=== PATIENT | male | born 1975 | race Two or more races ===

== ENCOUNTER 2019-06-28 01:46 | Emergency (ER) | payer SELFPAY ==
[~2019-06-28] VITALS: Ht 172.7 cm; Wt 83.9 kg
[2019-06-28 02:17] LABS: BILIRUBIN,URINE NEGATIVE (NEG); CLARITY,URINE CLEAR; COLOR,URINE YELLOW; NITRITE,URINE NEGATIVE (NEG); PROTEIN,URINE NEGATIVE (NEG-TRACE)
[2019-06-28] MEDS ORDERED: KETOROLAC 30 MG/ML VIAL. IVP ONE (02:30)
[2019-06-28] MEDS ORDERED: IV NORMAL SALINE 1000ML BAG 1,000 ML IV ONE (02:30)
[2019-06-28 02:35] LABS: BASO # 0.1 x10^3/uL (0.0-0.2); BASO % 1 % (0-3); EOS # 0.3 x10^3/uL (0.0-0.7); EOS % 4 % (0-3); HEMATOCRIT 44.6 % (39.0-53.0); HEMOGLOBIN 15.5 g/dL (13.0-17.5); LYMPH # 4.2 x10^3/uL (1.0-4.8); LYMPH % 50 % (24-48); MEAN CORPUSCULAR HEMOGLOBIN 30 pg (25-35); MEAN CORPUSCULAR HGB CONC 35 g/dL (31-37); MEAN CORPUSCULAR VOLUME 87 fL (79-100); MONO # 0.6 x10^3/uL (0.0-1.1); MONO % 7 % (0-9); NEUT # 3.3 x10^3/uL (1.8-7.7); NEUT % 39 % (31-73); PLATELET COUNT 403 x10^3/uL (140-400); RED BLOOD COUNT 5.16 x10^6/uL (4.30-5.70); RED CELL DISTRIBUTION WIDTH 12.8 % (11.5-14.5); WHITE BLOOD COUNT 8.4 x10^3/uL (4.0-11.0)
[2019-06-28 02:46] LABS: CALCIUM 8.9 mg/dL (8.5-10.1); CREATININE 1.1 mg/dL (0.7-1.3); GFR 72.7; POTASSIUM 3.1 mmol/L (3.5-5.1)
[2019-06-28 02:46] LABS: BACTERIA,URINE FEW /HPF (0-FEW); SQUAMOUS EPITHELIAL CELL,UR FEW /LPF
[2019-06-28 02:47] LABS: AMORPHOUS SEDIMENT,UR PRESENT /HPF
[2019-06-28 02:52] LABS: ALBUMIN 3.8 g/dL (3.4-5.0); ALBUMIN/GLOBULIN RATIO 0.9 (1.0-1.7); TOTAL BILIRUBIN 0.5 mg/dL (0.2-1.0); TOTAL PROTEIN 7.9 g/dL (6.4-8.2)
[2019-06-28 02:57] VITALS: BP 140/83
[2019-06-28] MEDS ORDERED: CONTRAST GIVEN. MC PRN (04:30)
[2019-06-28] MEDS ORDERED: POTASSIUM CHLORIDE 20 MEQ TABLET.ER. PO ONE (04:30)
[2019-06-28] MEDS ORDERED: IOHEXOL 300 MG/ML 100ML VIAL. IV ONE (04:30)
--- NOTE | 2019-06-28 04:47 | RAD ---
CT SCAN OF THE ABDOMEN AND PELVIS WITH IV CONTRAST. History: Left upper quadrant pain Comparison:None. Procedure: Contiguous axial images of the abdomen and pelvis were performed after the administration of 75 cc of Isovue 370 IV contrast. Oral contrast: No. Findings: Liver: Unremarkable Spleen: Unremarkable Pancreas: Unremarkable Adrenal Glands: Unremarkable Kidneys: There is mild perinephric edema on the left. There is no mass or lymphadenopathy. There is no free air. There is no free fluid. The urinary bladder appears normal. The appendix is normal. Impression: Mild left perinephric edema could be secondary to pyelonephritis. PQRS Compliance Statement: One or more of the following individualized dose reduction techniques were utilized for this examination: 1. Automated exposure control 2. Adjustment of the mA and/or kV according to patient size 3. Use of iterative reconstruction technique Electronically signed by: Xavier Calvert III, MD (06/28/2019 4:44 AM) [facility]
[2019-06-28] MEDS ORDERED: CEPH-264 PO (05:10)
[2019-06-28] MEDS ORDERED: DICL50TA4 PO (05:10)
--- NOTE | 2019-06-28 05:11 | PHYS DOC ---
Past Medical History Past Medical History: No Pertinent History Past Surgical History: Other Additional Past Surgical Histo: LEFT CLAVICLE SURGERY Alcohol Use: None Drug Use: None Adult General Chief Complaint Chief Complaint: FLANK PAIN HPI HPI Patient is a 44 year old male who presents to the ER with complaitns of left flank pain which started 1 hour prior to arrival. Patient describes pain as sharp - nothing makes worse, nothing makes better on exam. Patient describes nausea. Patient denies abdominal pain, headache, visual changes, chest pain or SOB on exam. He denies any dysuria, hematuria or history of kidney stone. Review of Systems Review of Systems Constitutional: Denies fever or chills [] Eyes: Denies change in visual acuity, redness, or eye pain [] HENT: Denies nasal congestion or sore throat [] Respiratory: Denies cough or shortness of breath [] Cardiovascular: No additional information not addressed in HPI [] GI: Denies abdominal pain,+ nausea, no vomiting, bloody stools or diarrhea , + left flank pain[] : Denies dysuria or hematuria [] Musculoskeletal: joint pain [] Integument: Denies rash or skin lesions [] Neurologic: Denies headache, focal weakness or sensory changes [] All other systems were reviewed and found to be within normal limits, except as documented in this note. Current Medications Current Medications Current Medications Medications (Trade) Dose Ordered Sig/Piyush Start Time Stop Time Status Last Admin Dose Admin Info (CONTRAST GIVEN -- Rx MONITORING) 1 each PRN DAILY PRN 06/28/19 04:30 06/28/19 05:35 DC Iohexol (Omnipaque 300 Mg/ml) 75 ml 1X ONCE 06/28/19 04:30 06/28/19 04:31 DC 06/28/19 04:21 75 ML Ketorolac Tromethamine (Toradol 30mg Vial) 30 mg 1X ONCE 06/28/19 02:30 06/28/19 02:31 DC 06/28/19 02:22 30 MG Potassium Chloride (Klor-Con) 40 meq 1X ONCE 06/28/19 04:30 06/28/19 04:31 DC 06/28/19 05:05 40 MEQ Sodium Chloride 1,000 ml @ 1,000 mls/hr 1X ONCE 06/28/19 02:30 06/28/19 03:29 DC 06/28/19 02:21 1,000 MLS/HR Allergies Allergies Allergies Coded Allergies Type Severity Reaction Last Updated Verified No Known Drug Allergies 06/28/19 No Physical Exam Physical Exam Constitutional: Well developed, well nourished, mild distress, non-toxic appearance. [] HENT: Normocephalic, atraumatic, bilateral external ears normal, oropharynx moist, no oral exudates, nose normal. [] Eyes: PERRLA, EOMI, conjunctiva normal, no discharge. [] Cardiovascular:Heart rate regular rhythm, no murmur [] Lungs & Thorax: Bilateral breath sounds clear to auscultation [] Abdomen: Bowel sounds normal, soft, no tenderness, no masses, no pulsatile masses. left flank tender to palpation[] Skin: Warm, dry, no erythema, no rash. [] Back: No tenderness, mild CVA tenderness. [] Extremities: No tenderness, no edema. [] Neurologic: Alert and oriented X 3, no focal deficits noted. [] Psychologic: Affect normal, judgement normal, mood normal. [] Current Patient Data Vital Signs Vital Signs Date Time Temp Pulse Resp B/P (MAP) Pulse Ox O2 Delivery O2 Flow Rate FiO2 06/28/19 02:57 60 18 140/83 (102) 97 Room Air 06/28/19 01:55 98.2 98.2 Lab Values Laboratory Tests Test 06/28/19 01:55 06/28/19 02:05 Urine Collection Type Unknown Urine Color Yellow Urine Clarity Clear Urine pH 7.0 Urine Specific [place] 1.020 Urine Protein Negative mg/dL (NEG-TRACE) Urine Glucose (UA) Negative mg/dL (NEG) Urine Ketones (Stick) Negative mg/dL (NEG) Urine Blood Negative (NEG) Urine Nitrite Negative (NEG) Urine Bilirubin Negative (NEG) Urine Urobilinogen Dipstick 1.0 mg/dL (0.2 mg/dL) Urine Leukocyte Esterase Negative (NEG) Urine RBC 1-2 /HPF (0-2) Urine WBC 1-4 /HPF (0-4) Urine Squamous Epithelial Cells Few /LPF Urine Amorphous Sediment Present /HPF Urine Bacteria Few /HPF (0-FEW) White Blood Count 8.4 x10^3/uL (4.0-11.0) Red Blood Count 5.16 x10^6/uL (4.30-5.70) Hemoglobin 15.5 g/dL (13.0-17.5) Hematocrit 44.6 % (39.0-53.0) Mean Corpuscular Volume 87 fL (79-100) Mean Corpuscular Hemoglobin 30 pg (25-35) Mean Corpuscular Hemoglobin Concent 35 g/dL (31-37) Red Cell Distribution Width 12.8 % (11.5-14.5) Platelet Count 403 x10^3/uL (140-400) H Neutrophils (%) (Auto) 39 % (31-73) Lymphocytes (%) (Auto) 50 % (24-48) H Monocytes (%) (Auto) 7 % (0-9) Eosinophils (%) (Auto) 4 % (0-3) H Basophils (%) (Auto) 1 % (0-3) Neutrophils # (Auto) 3.3 x10^3/uL (1.8-7.7) Lymphocytes # (Auto) 4.2 x10^3/uL (1.0-4.8) Monocytes # (Auto) 0.6 x10^3/uL (0.0-1.1) Eosinophils # (Auto) 0.3 x10^3/uL (0.0-0.7) Basophils # (Auto) 0.1 x10^3/uL (0.0-0.2) Sodium Level 142 mmol/L (136-145) Potassium Level 3.1 mmol/L (3.5-5.1) L Chloride Level 104 mmol/L (98-107) Carbon Dioxide Level 29 mmol/L (21-32) Anion Gap 9 (6-14) Blood Urea Nitrogen 18 mg/dL (8-26) Creatinine 1.1 mg/dL (0.7-1.3) Estimated GFR (Cockcroft-Gault) 72.7 BUN/Creatinine Ratio 16 (6-20) Glucose Level 123 mg/dL (70-99) H Calcium Level 8.9 mg/dL (8.5-10.1) Total Bilirubin 0.5 mg/dL (0.2-1.0) Aspartate Amino Transferase (AST) 22 U/L (15-37) Alanine Aminotransferase (ALT) 38 U/L (16-63) Alkaline Phosphatase 112 U/L (46-116) Total Protein 7.9 g/dL (6.4-8.2) Albumin 3.8 g/dL (3.4-5.0) Albumin/Globulin Ratio 0.9 (1.0-1.7) L Laboratory Tests 06/28/19 02:05 Laboratory Tests 06/28/19 02:05 EKG EKG [] Radiology/Procedures Radiology/Procedures [facility] [address] [place] [address] IMAGING REPORT Signed PATIENT: DAWSON BRAVO ACCOUNT: [id number] : 1975 LOCATION: ER AGE: 44 SEX: M EXAM STATUS: REG ER ORD. PHYSICIAN: RICK OBRIEN MD REASON: left upper quadrant pain, normal urine without infection/blood PROCEDURE: CT ABD PELV W/ IV CONTRST ONLY CT SCAN OF THE ABDOMEN AND PELVIS WITH IV CONTRAST. History: Left upper quadrant pain Comparison:None. Procedure: Contiguous axial images of the abdomen and pelvis were performed after the administration of 75 cc of Isovue 370 IV contrast. Oral contrast: No. Findings: Liver: Unremarkable Spleen: Unremarkable Pancreas: Unremarkable Adrenal Glands: Unremarkable Kidneys: There is mild perinephric edema on the left. There is no mass or lymphadenopathy. There is no free air. There is no free fluid. The urinary bladder appears normal. The appendix is normal. Impression: Mild left perinephric edema could be secondary to pyelonephritis. RS Compliance Statement: One or more of the following individualized dose reduction techniques were utilized for this examination: 1. Automated exposure control 2. Adjustment of the mA and/or kV according to patient size 3. Use of iterative reconstruction technique Electronically signed by: Kayy Calvert III, MD (06/28/2019 4:44 AM) [facility] DICTATED and SIGNED BY: KAYY CALVERT III, MD DATE: 06/28/19 0444 [] Course & Med Decision Making Course & Med Decision Making Pertinent Labs and Imaging studies reviewed. (See chart for details) []Patient is a 44 year old male who presents to the ER with complaitns of left flank pain which started 1 hour prior to arrival. Patient describes pain as sharp - nothing makes worse, nothing makes better on exam. Patient describes nausea. Patient denies abdominal pain, headache, visual changes, chest pain or SOB on exam. He denies any dysuria, hematuria or history of kidney stone. Labs/imaging reviewed Abnormal CT - perinephric stranding - abx provided, UAD negative Possible early pyelo Discussed with patient abx and pain medications Return precautions provided, patient understanding Vinod Disclaimer Vinod Disclaimer This electronic medical record was generated, in whole or in part, using a voice recognition dictation system. Departure Departure Impression: Primary Impression: Flank pain Additional Impressions: Abnormal CT scan Hypokalemia Disposition: HOME, SELF-CARE Condition: IMPROVED Referrals: NO PCP (PCP) Patient Instructions: Flank Pain, [id number] Additional Instructions: Recommend follow up with PCP 3 - 5 days Return to the ER with worsening symptoms, intractable pain, fever, altered mental status Tylenol/Motrin as needed for pain CT reveals evidence of inflammatory process around the kidneys. Urinalysis is unremarkable for urinary infection however could be developing. Plan antibiotic therapy and pain medications as needed for inflammatory process. Scripts Cephalexin (KEFLEX) 500 Mg Capsule 2 CAP PO Q12HR for 7 Days, #28 CAP Prov: RICK OBRIEN MD 06/28/19 Diclofenac Sodium (DICLOFENAC SODIUM) 50 Mg Tablet.dr 1 TAB PO BID for 7 Days, #14 TAB 2 Refills Prov: RICK OBRIEN MD 06/28/19 Problem Qualifiers RICK OBRIEN MD Jun 28, 2019 05:11
== END 2019-06-28 05:30 | disposition home or self-care (01) ==
LOC: ER 01:46
DX: R10.9 Unspecified abdominal pain (principal); R93.5 Abnormal findings on diagnostic imaging of other abdominal regions, including retroperitoneum; E87.6 Hypokalemia
CPT/HCPCS: 36415; 74177; 80053; 81001; 85025; 96374; 99285; J1885; J7030; Q9967